=== PATIENT | male | born 1975 | race African-American/Black ===

== ENCOUNTER 2019-02-10 12:38 | Emergency (ER) | payer MEDICAID ==
[~2019-02-10] VITALS: Ht 175.3 cm; Wt 85.0 kg
[2019-02-10] MEDS ORDERED: SODIUM CHLORIDE 0.9% 1,000 ML IV ONE (18:07)
[2019-02-10] MEDS ORDERED: ONDANSETRON HCL 4MG/2ML INJ IV STA (18:07)
[2019-02-10] MEDS ORDERED: LORAZEPAM 2MG/ML CPJ IV ONE (18:15)
[2019-02-10 19:51] LABS: CHLORIDE 108 mEq/L (98-107)
[2019-02-10 19:55] LABS: BASOPHILS % 0.2 % (0.0-2.0); HEMATOCRIT. 42.8 % (42.0-52.0); HEMOGLOBIN. 14.4 g/dL (14.0-18.0); LYMPHOCYTES % 10.9 % (20.0-50.0); MEAN CORPUSCULAR HEMOGLOBIN 29.6 pg (28.0-32.0); MEAN CORPUSCULAR VOLUME 88.3 fL (80.0-94.0); MEAN PLATELET VOLUME 9.8 fl (7.4-10.4); MONOCYTES % 4.5 % (2.0-8.0); NEUTROPHILS % 84.4 % (40.0-76.0); PLATELET 194 x1000/uL (130-400); RED BLOOD CELL COUNT 4.85 mill/uL (4.7-6.1); RED CELL DISTRIBUTION WIDTH 13.2 % (11.6-14.6)
[2019-02-10 19:57] LABS: ETHANOL BLOOD < 10 mg/dL
[2019-02-10 20:02] LABS: CREATINE KINASE 223 IU/L (39-308)
[2019-02-10 20:05] LABS: CREATINE KINASE MB FRACTION 1.6 ng/mL (0.5-3.6)
[2019-02-10 23:42] LABS: *AMPHETAMINES SCREEN URINE NEGATIVE (NEGATIVE); *BARBITURATES SCREEN URINE NEGATIVE (NEGATIVE); *BENZODIAZEPINES SCREEN URINE NEGATIVE (NEGATIVE); *COCAINE SCREEN URINE NEGATIVE (NEGATIVE); METHADONE URINE SCREEN NEGATIVE (NEGATIVE); OPIATES URINE SCREEN NEGATIVE (NEGATIVE)
[2019-02-10 23:44] LABS: CANNABINOID URINE SCREEN NEGATIVE (NEGATIVE); PHENCYCLIDINE URINE SCREEN NEGATIVE (NEGATIVE)
[2019-02-11 09:30] VITALS: BP 107/64
== END 2019-02-11 16:46 | disposition home or self-care (01) ==
LOC: ER 12:38
DX: G93.40 Encephalopathy, unspecified (principal); R53.1 Weakness; L53.9 Erythematous condition, unspecified; R11.2 Nausea with vomiting, unspecified; R41.82 Altered mental status, unspecified; Z59.0 Homelessness
CPT/HCPCS: 36415; 70450; 80053; 80305; 80320; 82550; 82553; 83690; 84443; 84484; 85025; 93005; 96360; 96361; 99284; J2060; J7030; Z7610; J2405; G0480